=== PATIENT | female | born 1965 | race Caucasian/White ===

== ENCOUNTER 2017-03-28 19:01 | Emergency (ER) | payer SELFPAY ==
[~2017-03-28] VITALS: Ht 165.1 cm; Wt 59.0 kg
[2017-03-28 19:22] VITALS: BP 131/85
--- NOTE | 2017-03-28 20:36 | PHYS DOC ---
General Chief Complaint: SKIN PROBLEM Stated Complaint: CARLOS ALBERTO Time Seen by MD: 19:32 Source: patient, old records (from [place]) Exam Limitations: clinical condition Problems: History of Present Illness Initial Comments Pt is 51/F to ED c/o appendicitis. Pt states she was seen at [place] recently and diagnosed with acute appendicitis. States she was seen initially for skin rash but was dx appy and referred to surgeon. Pt denies admission or antibiotics. Pt is AOx3 but at times will say something random. I advised her we would request [facility] records and try to clear things up for her. She says she's had rash around umbilicus for years but noone can diagnose or treat it. Also complains of a few small bug bites (appear to be ingrown hairs or early MRSA) on arms/legs. No fever/chills/FLORES/n/v/d/cp/sob. Pt is very vague and poor historian, ED VSS Timing/Duration: unsure Severity: severe Modifying Factors: improves with other Associated Symptoms: rash Allergies: Coded Allergies: NSAIDS (Non-Steroidal Anti-Inflamma (Verified Allergy, Unknown, 03/28/17) celecoxib (Verified Allergy, Unknown, 03/28/17) cephalexin (Verified Allergy, Unknown, 03/28/17) levofloxacin (Verified Allergy, Unknown, 03/28/17) sulfamethoxazole (Verified Allergy, Unknown, 03/28/17) trimethoprim (Verified Allergy, Unknown, 03/28/17) Past Medical History Medical History: other (HTN, kidney stones, portal HTN, mood disorder, psychosis) Surgical History: no surgical history Social History Smoker: non-smoker Alcohol: none Drugs: none Review of Systems All Other Systems: Reviewed and Negative (poor historian, ROS unreliable) Physical Exam General Appearance: no apparent distress Ear, Nose, Throat: hearing grossly normal, normal ENT inspection, normal pharynx Neck: non-tender, supple Respiratory: normal breath sounds, no respiratory distress Cardiovascular: normal peripheral pulses, regular rate, rhythm Gastrointestinal: normal bowel sounds, soft (ND, erythema halo surrounding umbilicus slight induration/heat nontender no skin breaks/purulence/vesicles. two small (Less than 0.5cm) ingrown hairs vs early MRSA right arm and leg.) Back: no CVA tenderness, no vertebral tenderness Extremities: non-tender, normal inspection Neurologic/Psychiatric: religious educator II-XII nml as tested, alert, normal mood/affect, oriented x 3, other (erratic speech at times, no SI/HI, cooperative/appropriate) Skin: warm/dry (abdomen/extremities as above) Orders, Labs, Meds H records obtained, pt had cardiac CT calcium score eval only. No appendicitis or general surgery referrals. I advised pt of this to her relief, will treat skin infection. Departure Time of Disposition: 20:39 Disposition: 01 HOME, SELF-CARE Diagnosis: MRSA skin lesions/cellulitis Condition: GOOD Patient Instructions: Cellulitis, [id number], MRSA Infection, , Easy-to -Read Additional Instructions: To clarify, Anika has no record of appendicitis diagnosis for you. The redness around your umbilicus CAN be a skin manifestation associated with your prior portal hypertension diagnosis. Warm compresses 4 times daily. Rx: doxycycline, bactroban ointment. Take meds with food. OTC tylenol as needed. Follow up with your doctor in 5-7 days for recheck. Return to ED with new or changing symptoms. DES SOSA DO March 28, 2017 20:36
[2017-03-28] MEDS ORDERED: DOXY100C2 PO (20:42)
[2017-03-28] MEDS ORDERED: MUPI15CR TP (20:42)
[2017-03-28] MEDS ORDERED: DOXYCYCLINE HYCLATE 100 MG TABLET PO ONE (21:00)
== END 2017-03-28 20:57 | disposition home or self-care (01) ==
LOC: ER 19:07
DX: L03.316 Cellulitis of umbilicus (principal); A49.02 Methicillin resistant Staphylococcus aureus infection, unspecified site; L98.8 Other specified disorders of the skin and subcutaneous tissue; I10 Essential (primary) hypertension; F29 Unspecified psychosis not due to a substance or known physiological condition; Z87.442 Personal history of urinary calculi; Z88.1 Allergy status to other antibiotic agents; Z88.8 Allergy status to other drugs, medicaments and biological substances
CPT/HCPCS: 99283

== ENCOUNTER → 2017-06-01 | Outpatient (CLI) | payer MEDICARE, OTHER ==
[~2017-06-01] MED LIST: DOXY100C2 PO; MUPI15CR TP
--- NOTE | 2017-06-01 10:09 | RAD ---
CT of the abdomen and pelvis without contrast, 06/01/2017: History: Abdominal distention Noncontrast scans were obtained as requested. The gallbladder is surgically absent. The liver demonstrates decreased density in a slightly patchy pattern compatible with hepatic steatosis. No bile duct dilatation is seen. The pancreas and spleen are unremarkable. There is bilateral renal cortical scarring. A 2 cm cyst is noted laterally in the left kidney. The kidneys show no evidence of obstruction. No renal calculi are evident. The adrenal glands are unremarkable. The abdominal aorta is of normal caliber. No retroperitoneal adenopathy is seen. There are scattered mesenteric and iliac lymph nodes without evidence of pathologic enlargement. The uterus is surgically absent. There are several small scattered colonic diverticula. No paracolonic inflammatory process is seen. The appendix is visualized and shows no abnormality. The bowel loops are not dilated. No free fluid or free air is evident in the abdomen or pelvis. There are mild scattered degenerative changes in the spine. IMPRESSION: 1. Hepatic steatosis. 2. Left renal cyst. 3. Minimal colonic diverticulosis. 4. No acute abdominal or pelvic abnormality is detected. PQRS Compliance Statement: One or more of the following individualized dose reduction techniques were utilized for this examination: 1. Automated exposure control 2. Adjustment of the mA and/or kV according to patient size 3. Use of iterative reconstruction technique
== END | disposition home or self-care (01) ==
LOC: CT 08:13
PROVIDERS: ATTEND Internal Medicine
DX: Z12.31 Encounter for screening mammogram for malignant neoplasm of breast (principal); K57.30 Diverticulosis of large intestine without perforation or abscess without bleeding; N20.0 Calculus of kidney; K76.0 Fatty (change of) liver, not elsewhere classified; N28.1 Cyst of kidney, acquired
CPT/HCPCS: 74176; 77063; G0202; 77067

== ENCOUNTER → 2017-06-17 | Outpatient (CLI) | payer MEDICARE ==
--- NOTE | 2017-06-17 14:08 | RAD ---
EXAM: BREAST LEFT HISTORY: Small left breast mass on screening exam COMPARISON: Priors including 06/01/2017 at 10/12/2011 Focused ultrasound images are obtained through the left breast in the region of concern for possible small mass on screening exam. FINDINGS: Within the left breast at the 12:00 position 5 cm from the nipple there is a small hypoechoic mass measuring approximately 7 x 5 mm. There is no definite internal vascularity. There are some septations within versus a cluster of small hypoechoic lesions. IMPRESSION: Hypoechoic lesion is identified within the left breast at the 12:00 position. This could be secondary to a small complex cystic lesion or a cluster of small cysts adjacent to each other. Given the internal complexity would obtain a follow-up ultrasound and mammogram to ensure no increase. This could be obtained in 6 months. BI-RADS CATEGORY: 3 PROBABLE BENIGN-SHORT TERM F/U RECOMMENDED FOLLOW-UP: 6M 6 MONTH FOLLOW-UP PQRS compliance statement: Patient information was entered into a reminder system with a target due date for the next mammogram. Mammography is a sensitive method for finding small breast cancers, but it does not detect them all and is not a substitute for careful clinical examination. A negative mammogram does not negate a clinically suspicious finding and should not result in delay in biopsying a clinically suspicious abnormality. "Our facility is accredited by the [employer] Mammography Program."
== END | disposition home or self-care (01) ==
LOC: US 13:10
PROVIDERS: ATTEND Internal Medicine
DX: N63 Unspecified lump in breast (principal)
CPT/HCPCS: 76641

== ENCOUNTER 2019-12-15 09:04 | Emergency (ER) | payer MEDICARE ==
[~2019-12-15] VITALS: Ht 165.1 cm; Wt 90.7 kg
[2019-12-15 09:04] VITALS: BP 148/85
[2019-12-15] MEDS ORDERED: HYDROcodone/APAP 5/325MG 1 TAB TABLET PO ONE (09:15)
--- NOTE | 2019-12-15 09:45 | RAD ---
3 view sacrum coccyx dated 12/15/2019. No comparison available. Clinical data indication: Pain after injury. FINDINGS: 3 view sacrum coccyx show normal bony alignment. No displaced fracture. Sacral alae appear to be intact. No definite fracture of the coccygeal tip. There is mild osteitis pubis. IMPRESSION: No acute radiographic abnormality. Electronically signed by: Ebenezer Roche MD (12/15/2019 9:43 AM) [facility]
--- NOTE | 2019-12-15 09:50 | PHYS DOC ---
Past History Past Medical History: Hypertension, Kidney Stones, Other Additional Past Medical Histor: back pain Past Surgical History: No Surgical History Alcohol Use: Rarely Drug Use: None Adult General Chief Complaint Chief Complaint: MECHANICAL FALL HPI HPI Patient is a 53-year-old female presenting with tailbone pain she fell on the ice 90 right on her tailbone no head injury no loss of consciousness she was brought in by ambulance she is living at the nursing home she wants to know if I can give her an epidural Review of Systems Review of Systems Constitutional: Denies fever or chills [] Eyes: Denies change in visual acuity, redness, or eye pain [] HENT: Denies nasal congestion or sore throat [] Respiratory: Denies cough or shortness of breath [] Negative for bowel or bladder incontinence negative for numbness weakness or tingling All other systems were reviewed and found to be within normal limits, except as documented in this note. Current Medications Current Medications Current Medications Medications (Trade) Dose Ordered Sig/Danna Start Time Stop Time Status Last Admin Dose Admin Acetaminophen/ Hydrocodone Bitart (Lortab 5/325) 1 tab 1X ONCE 12/15/19 09:15 12/15/19 09:16 DC Allergies Allergies Allergies Coded Allergies Type Severity Reaction Last Updated Verified NSAIDS (Non-Steroidal Anti-Inflamma Allergy Unknown 03/28/17 Yes celecoxib Allergy Unknown 03/28/17 Yes cephalexin Allergy Unknown 03/28/17 Yes levofloxacin Allergy Unknown 03/28/17 Yes methamphetamine Allergy Unknown 12/15/19 Yes sulfamethoxazole Allergy Unknown 03/28/17 Yes trimethoprim Allergy Unknown 03/28/17 Yes Physical Exam Physical Exam Constitutional: Well developed, well nourished, no acute distress, non-toxic appearance. [] HENT: Normocephalic, atraumatic, bilateral external ears normal, oropharynx moist, no oral exudates, nose normal. [] Eyes: PERRLA, EOMI, conjunctiva normal, no discharge. [] Neck: Normal range of motion, no tenderness, supple, no stridor. [] Pulmonary: Normal respiratory effort no increased work of breathing no obvious chest wall trauma Back there is point tenderness at the sacrum no trauma seen Extremities: No tenderness, no cyanosis, no clubbing, ROM intact, no edema. [] Neurologic: Alert and oriented X 3, normal motor function, normal sensory function, no focal deficits noted. [] Psychologic: Affect normal, judgement normal, mood normal. [] Current Patient Data Vital Signs Vital Signs Date Time Temp Pulse Resp B/P (MAP) Pulse Ox O2 Delivery O2 Flow Rate FiO2 12/15/19 09:04 97.7 81 16 97 Room Air [facility]ature ([facility] * 97.7 degrees F (97.6-99.5) Patient Temperature * 97.7 degrees F (97.5-99.5) Temperature Source * Oral Blood Pressure Systolic * 148 mm Hg (100-140) H Blood Pressure Diastolic * 85 mm Hg (60-100) Blood Pressure Mean * 106 mm Hg Pulse Rate * 81 beats per minute (60-90) Respiratory Rate * 16 breaths per minute (12-24) Oxygen Delivery Method * Room Air Bedside Pulse Oximetry * 97 % Treatment Prior to Arrival * Yes - EMS Complaint of Pain * Yes Lab Results rature ([facility]): * 97.7 degrees F (97.6-99.5) Patient Temperature * 97.7 degrees F (97.5-99.5) Temperature Source * Oral Blood Pressure Systolic * 148 mm Hg (100-140) H Blood Pressure Diastolic * 85 mm Hg (60-100) Blood Pressure Mean * 106 mm Hg Pulse Rate * 81 beats per minute (60-90) Respiratory Rate * 16 breaths per minute (12-24) Oxygen Delivery Method * Room Air Bedside Pulse Oximetry * 97 % Treatment Prior to Arrival * Yes - EMS Complaint of Pain * Yes EKG EKG [] Radiology/Procedures Radiology/Procedures [] Impressions: 3 view sacrum coccyx show normal bony alignment. No displaced fracture. Sacral alae appear to be intact. No definite fracture of the coccygeal tip. There is mild osteitis pubis. IMPRESSION: No acute radiographic abnormality. Electronically signed by: Ebenezer Roche MD (12/15/2019 9:43 AM) [facility] DICTATED AND SIGNED BY: EBENEZER ROCHE MD DATE: 12/15/19 0943 CC: JAY JAY GODINEZ DO; ISAAC BRADY MD ~ Course & Med Decision Making Course & Med Decision Making Pertinent Labs and Imaging studies reviewed. (See chart for details) []Patient was given a dose of [place] and discharged in stable condition she is ambulatory Dragon Disclaimer Dragon Disclaimer This electronic medical record was generated, in whole or in part, using a voice recognition dictation system. Departure Departure: Impression: Primary Impression: Contusion Disposition: HOME, SELF-CARE Condition: STABLE Referrals: JAY JAY GODINEZ DO (PCP) ISAAC BRADY MD Dec 15, 2019 09:50
== END 2019-12-15 10:06 | disposition home or self-care (01) ==
LOC: ER 09:04
DX: S30.0XXA Contusion of lower back and pelvis, initial encounter (principal); I10 Essential (primary) hypertension; Z87.442 Personal history of urinary calculi; Z88.6 Allergy status to analgesic agent; Z88.1 Allergy status to other antibiotic agents; Z88.2 Allergy status to sulfonamides; W00.0XXA Fall on same level due to ice and snow, initial encounter; Y93.89 Activity, other specified; Y92.89 Other specified places as the place of occurrence of the external cause; Y99.8 Other external cause status
CPT/HCPCS: 72220; 99284

== ENCOUNTER → 2020-01-15 | Outpatient (CLI) | payer MEDICARE, OTHER ==
--- NOTE | 2020-01-16 15:16 | RAD ---
Examination: CT ABDOMEN PELVIS WO CONTRAST History: Abdominal pain, kidney stones Comparison/Correlation: 06/01/2017 CT abdomen and pelvis without contrast Findings: Axial images of the abdomen and pelvis were obtained without contrast. Sagittal and coronal reformatted images were provided. Visualized lung bases are clear. Right hepatic lobe posterior segment 3.2 cm x 2.4 cm low-attenuation lesion with Hounsfield units of 31 is present. It is well-circumscribed. Spleen, pancreas, and adrenal glands are normal. Cholecystectomy is noted. Left renal lower pole cyst is present with benign features and no further follow-up is recommended. No radiopaque collecting system calculi. Kidneys are overall unremarkable. Small umbilical hernia containing omental fat. Mesenteric lymph nodes are present but not enlarged. Appendix is normal. Diverticulosis of the colon is present. No acute inflammation. Urinary bladder is unremarkable. No acute bony process identified. Impression: Low-attenuation hepatic lesion is new compared to the previous CT exam. Further evaluation with MRI of the liver without and with contrast is recommended if able for more definitive assessment. Alternatively, CT of the liver with contrast may be performed. Diverticulosis. No radiopaque collecting system calculi or evidence of collecting system obstruction. On 01/16/2020 at 3:12 PM, findings were discussed with Dr. Faulkner. PQRS Compliance Statement: One or more of the following individualized dose reduction techniques were utilized for this examination: 1. Automated exposure control 2. Adjustment of the mA and/or kV according to patient size 3. Use of iterative reconstruction technique Electronically signed by: Dionicio Sidhu MD (01/16/2020 3:13 PM) [facility]
== END | disposition home or self-care (01) ==
LOC: CT 10:38
PROVIDERS: ATTEND Internal Medicine
DX: K42.9 Umbilical hernia without obstruction or gangrene (principal); K57.30 Diverticulosis of large intestine without perforation or abscess without bleeding; N28.1 Cyst of kidney, acquired; Z90.49 Acquired absence of other specified parts of digestive tract
CPT/HCPCS: 74176

== ENCOUNTER 2021-05-19 12:10 | Emergency (ER) | payer MEDICARE ==
[~2021-05-19] VITALS: Ht 167.6 cm; Wt 100.0 kg
--- NOTE | 2021-05-19 12:58 | PHYS DOC ---
Past History Past Medical History: Hypertension, Kidney Stones, Other Additional Past Medical Histor: back pain, chronic diarrhea, colon polyps (ALONDRA WEBB APRN) Past Surgical History: Cholecystectomy, Hysterectomy, Tonsillectomy (ALONDRA WEBB APRN) Additional Smoking Information: very rare cigarettes Alcohol Use: None Drug Use: None (ALONDRA WEBB APRN) General Adult EDM: Chief Complaint: MULTIPLE COMPLAINTS HPI: HPI: Patient is a 55-year-old female who presents with abdominal pain, nausea, dizziness for 3 days. Patient reports pain is in the middle of her abdomen. Denies taking anything for pain. Denies anything making the pain better or worse. Patient reports diarrhea, but has a history of chronic diarrhea. Denies dysuria. Denies chest pain, shortness of breath. Afebrile. Patient has a history of kidney stones. (ALONDRA WEBB APRN) Review of Systems: Review of Systems: Constitutional: Denies fever or chills Eyes: Denies change in visual acuity HENT: Denies nasal congestion or sore throat Respiratory: Denies cough or shortness of breath Cardiovascular: Denies chest pain or edema GI: Reports abdominal pain, nausea, and chronic diarrhea : Denies dysuria Musculoskeletal: Denies back pain or joint pain Integument: Denies rash Neurologic: Reports dizziness, denies focal weakness or sensory changes, denies headache Endocrine: Denies polyuria or polydipsia Lymphatic: Denies swollen glands Psychiatric: Denies depression or anxiety (ALONDRA WEBB APRN) Allergies: Allergies: Allergies Coded Allergies Type Severity Reaction Last Updated Verified NSAIDS (Non-Steroidal Anti-Inflamma Allergy Unknown 05/19/21 Yes celecoxib Allergy Unknown 05/19/21 Yes cephalexin Allergy Unknown 05/19/21 Yes levofloxacin Allergy Unknown 05/19/21 Yes methamphetamine Allergy Unknown 05/19/21 Yes sulfamethoxazole Allergy Unknown 05/19/21 Yes trimethoprim Allergy Unknown 05/19/21 Yes (ALONDRA WEBB APRN) Physical Exam: PE: Constitutional: Well developed, well nourished, no acute distress, non-toxic appearance. [] HENT: Normocephalic, atraumatic, bilateral external ears normal, oropharynx moist, no oral exudates, nose normal. [] Eyes: PERRLA, EOMI, conjunctiva normal, no discharge. [] Neck: Normal range of motion, no tenderness, supple, no stridor. [] Cardiovascular:Heart rate regular rhythm, no murmur [] Lungs & Thorax: Bilateral breath sounds clear to auscultation [] Abdomen: Bowel sounds normal, soft, no tenderness, no masses, no pulsatile masses. [] Skin: Warm, dry, no erythema, no rash. [] Back: No tenderness, no CVA tenderness. [] Extremities: No tenderness, no cyanosis, no clubbing, ROM intact, no edema. [] Neurologic: Alert and oriented X 3, normal motor function, normal sensory function, no focal deficits noted. [] Psychologic: Rambling, fleeting thoughts (ALONDRA WEBB APRN) Current Patient Data: Vital Signs: Vital Signs Date Time Temp Pulse Resp B/P (MAP) Pulse Ox O2 Delivery O2 Flow Rate FiO2 05/19/21 12:20 98.2 85 15 107/65 (79) 96 Room Air (ALONDRA WEBB APRN) EKG: EKG: Sinus rhythm. Heart rate 80 bpm. Intervals normal. [place] normal. Read by Dr. Mehta @1254 [] (ALONDRA WEBB SENIOR CREDIT OFFICER) Radiology/Procedures: Radiology/Procedures: []INDICATION: Reason: ABDOMINAL PAIN, HX KIDNEY STONES / Spl. Instructions: / History: . COMPARISON: December 2019 TECHNIQUE: Axial CT images obtained through the abdomen and pelvis without contrast. One or more of the following individualized dose reduction techniques were utilized for this examination: 1. Automated exposure control; 2. Adjustment of the mA and/or kV according to patient size; 3. Use of iterative reconstruction technique. FINDINGS: Abdominal aorta is not aneurysmal. Scattered plaque is seen. Small fat-containing umbilical hernia. There are some scattered prominent lymph nodes in the groin again seen. Is also prominent lymph nodes seen at the pelvis including left external iliac chain measuring up to about 10 mm short axis. Liver is prominent in size. Repeat demonstration of a indeterminate right lobe the liver low-density lesion measuring proximately 29 x 23 mm which is comparable to prior. Mild haziness of the mesentery with scattered lymph nodes in the region again seen. No pancreatic fluid collection. Prominent lymph nodes in the eladia hepatis region again seen. Spleen unremarkable. 31 mm low-density lesion of left kidney which is likely cystic in nature. Inc ompletely characterized on noncontrast exam. No hydronephrosis. Urinary bladder is decompressed. There is some indistinctness of the adjacent fat. No periappendiceal inflammatory changes. Colonic diverticulosis. No dilated loops of bowel to suggest obstruction. Degenerative changes of the spine. IMPRESSION: * No hydronephrosis or radiopaque obstructive ureter stone. * Cystic lesion of the left kidney again seen. * Low-density lesion of the right lobe the liver again seen and indeterminate in nature on this noncontrast examination. If more complete evaluation is desired nonemergent CT or MRI liver protocol could better assess. * Mild indistinctness the fat adjacent to the urinary bladder. Would correlate with symptoms and lab markers to ensure that this is not from a pathologic cause such as cystitis or bladder wall lesion. * Scattered mildly prominent lymph nodes are again seen as well as some nonspecific haziness of the mesentery. Electronically signed by: Miles Ayon MD (05/19/2021 2:02 PM) [id number] DICTATED AND SIGNED BY: MILES AYON MD DATE: 05/19/21 2200 CC: JAY JAY GODINEZ DO; ALONDRA WEBB APRN ~MTH0 0 (ALONDRA WEBB APRN) Heart Score: C/O Chest Pain: No Risk Factors: Risk Factors: DM, Current or recent (<one month) smoker, HTN, HLP, family history of CAD, obesity. Risk Scores: Score 0 - 3: 2.5% MACE over next 6 weeks - Discharge Home Score 4 - 6: 20.3% MACE over next 6 weeks - Admit for Clinical Observation Score 7 - 10: 72.7% MACE over next 6 weeks - Early Invasive Strategies (ALONDRA WEBB APRN) Course & Med Decision Making: Course & Med Decision Making Pertinent Labs and Imaging studies reviewed. (See chart for details) [] 55-year-old female who presents with abdominal pain, nausea and dizziness for the last 3 days. Patient has a history of kidney stones. Denying dysuria or flank pain. CT of abdomen ordered to rule out any acute abnormalities. Patient's had gallbladder removed along with a total hysterectomy. EKG shows sinus rhythm, neuro exam is negative. Patient given morphine, Zofran, fluids for abdominal pain, nausea and dizziness. CT of abdomen and pelvis is negative for any new acute abnormalities. All labs unremarkable. Patient reports that pain has improved. Discussed CT results with patient. Advised patient to follow-up with PCP if symptoms continue. Patient is appreciative and okay with discharge plan. Patient is hemodynamically stable and able to ambulate on her own out of the emergency room. (ALONDRA WEBB APRN) Dm Disclaimer: Dm Disclaimer: This electronic medical record was generated, in whole or in part, using a voice recognition dictation system. (ALONDRA WEBB APRN) Departure Departure: Impression: Primary Impression: Abdominal pain Qualified Codes: R10.33 - Periumbilical pain Additional Impressions: Nausea Dizziness Disposition: HOME / SELF CARE / HOMELESS Condition: STABLE Referrals: JAY JAY GODINEZ DO (PCP) Patient Instructions: Abdominal Pain Additional Instructions: You were seen in the emergency room for abdominal pain, nausea, dizziness. You were given pain medication, nausea medication, fluids. The CT of your abdomen was negative for any abnormalities. You can take ibuprofen and Tylenol at home for discomfort. Follow-up with your PCP for further management if pain continues. You may return to the emergency room if you have worsening symptoms or concerns. EMERGENCY DEPARTMENT GENERAL DISCHARGE INSTRUCTIONS Thank you for coming to [facility] (ED) today and trusting us with you care. We trust that you had a positivie experience in our Emergency Department. If you wish to speak to the department management, you may call the director at [phone]. YOUR FOLLOW UP INSTRUCTIONS ARE FOLLOWS: 1. Do you have a private Doctor? If you do not have a private doctor, please ask for a resource list of physicians or clinics that may be able to assist you with follow up care. 2. The Emergency Physician has interpreted your x-rays. The X-Ray specialist will also review them. If there is a change in the findings, you will be notified in 48 hours when at all possible. 3. A lab test or culture has been done, your results will be reviewed and you will be notified if you need a change in treatment. ADDITIONAL INSTRUCTIONS AND INFORMATION: 1. Your care today has been supervised by a physician who is specially trained in emergency care. Many problems require more than one evaluation for a complete diagnosis and treatment. We recommend that you schedule your follow up appointment as recommended to ensure complete treatment of you illness or injury. If you are unable to obtain follow up care and continue to have a problem, or if your condition worsens, we recommend that you return to the ED. 2. We are not able to safely determine your condition over the phone nor are we able to give sound medical advice over the phone. For these safety reasons, if you call for medical advice we will ask you to come to the ED for further evaluation. 3. If you have any questions regarding these discharge instructions please call the ED at [phone]. SAFETY INFORMATION: In the interest of safety, wellness, and injury prevention; we encourage you to wear your sealbelt, if you smoke; quite smoking, and we encourage family to use a protective helmet for bicycling and other sporting events that present an increased risk for head injury. IF YOUR SYMPTOMS WORSEN OR NEW SYMPTOMS DEVELOP, OR YOU HAVE CONCERNS ABOUT YOUR CONDITION; OR IF YOUR CONDITION WORSENS WHILE YOU ARE WAITING FOR YOUR FOLLOW UP APPOINTMENT; EITHER CONTACT YOUR PRIMARY CARE DOCTOR, THE PHYSICIAN WHOSE NAME AND NUMBER YOU WERE GIVEN, OR RETURN TO THE ED IMMEDIATELY. Attending Signature Attending Signature I have reviewed the PA/[employer]'s note and plan of care. I was available for consultation as needed during the patient's visit in the emergency department. I agree with the clinical impression, plan, and disposition. (EDWARD MEHTA DO) ALONDRA WEBB APRN May 19, 2021 12:58 EDWARD MEHTA DO May 19, 2021 23:21
[2021-05-19] MEDS ORDERED: MORPHINE SULFATE 4 MG/ML DISP.SYRIN. IV ONE (13:15)
[2021-05-19] MEDS ORDERED: ONDANSETRON PF 4 MG/2 ML VIAL. IVP ONE (13:15)
[2021-05-19 13:23] LABS: BASO % 1 % (0-3); EOS # 0.3 x10^3/uL (0.0-0.7); EOS % 4 % (0-3); HEMATOCRIT 38.3 % (36.0-47.0); HEMOGLOBIN 13.1 g/dL (12.0-15.5); LYMPH % 38 % (24-48); MEAN CORPUSCULAR HEMOGLOBIN 30 pg (25-35); MEAN CORPUSCULAR HGB CONC 34 g/dL (31-37); MEAN CORPUSCULAR VOLUME 87 fL (79-100); MONO # 0.5 x10^3/uL (0.0-1.1); MONO % 6 % (0-9); NEUT # 4.1 x10^3uL (1.8-7.7); NEUT % 52 % (31-73); PLATELET COUNT 196 x10^3/uL (140-400); RED BLOOD COUNT 4.42 x10^6/uL (3.50-5.40); RED CELL DISTRIBUTION WIDTH 14.5 % (11.5-14.5); WHITE BLOOD COUNT 7.8 x10^3/uL (4.0-11.0)
[2021-05-19 13:28] LABS: HEMOGLOBIN ISTAT 12.6 gm/dL; POTASSIUM ISTAT 3.6 mmol/L (3.5-5.0)
[2021-05-19 13:30] LABS: BILIRUBIN,URINE NEG (NEG); CLARITY,URINE CLEAR; COLOR,URINE YELLOW; GLUCOSE,URINE NEG (NEG); NITRITE,URINE NEG (NEG); UROBILINOGEN,URINE 0.2 mg/dL (0.2 mg/dL)
[2021-05-19] MEDS ORDERED: IV NORMAL SALINE 1,000ML 1,000 ML IV ONE (13:30)
[2021-05-19 13:34] LABS: BACTERIA,URINE MOD /HPF (0-FEW); SQUAMOUS EPITHELIAL CELL,UR FEW /LPF
--- NOTE | 2021-05-19 14:05 | RAD ---
INDICATION: Reason: ABDOMINAL PAIN, HX KIDNEY STONES / Spl. Instructions: / History: . COMPARISON: December 2019 TECHNIQUE: Axial CT images obtained through the abdomen and pelvis without contrast. One or more of the following individualized dose reduction techniques were utilized for this examinat ion: 1. Automated exposure control; 2. Adjustment of the mA and/or kV according to patient size; 3 . Use of iterative reconstruction technique. FINDINGS: Abdominal aorta is not aneurysmal. Scattered plaque is seen. Small fat-containing umbilical hernia. There are some scattered prominent lymph nodes in the groin again seen. Is also prominent lymph nodes seen at the pelvis including left external iliac chain measuring up to about 10 mm short axis. Liver is prominent in size. Repeat demonstration of a indeterminate right lobe the liver low-density lesion measuring proximately 29 x 23 mm which is comparable to prior. Mild haziness of the mesentery with scattered lymph nodes in the region again seen. No pancreatic flu id collection. Prominent lymph nodes in the eladia hepatis region again seen. Spleen unremarkable. 31 mm low-density lesion of left kidney which is likely cystic in nature. Incompletely characterized on noncontrast exam. No hydronephrosis. Urinary bladder is decompressed. There is some indistinctness of the adjacent fat. No periappendiceal inflammatory changes. Colonic diverticulosis. No dilated loops of bowel to suggest obstruction. Degenerative changes of the spine. IMPRESSION: * No hydronephrosis or radiopaque obstructive ureter stone. * Cystic lesion of the left kidney again seen. * Low-density lesion of the right lobe the liver again seen and indeterminate in nature on this nonc ontrast examination. If more complete evaluation is desired nonemergent CT or MRI liver protocol coul d better assess. * Mild indistinctness the fat adjacent to the urinary bladder. Would correlate with symptoms and lab markers to ensure that this is not from a pathologic cause such as cystitis or bladder wall lesion. * Scattered mildly prominent lymph nodes are again seen as well as some nonspecific haziness of the mesentery. Electronically signed by: Lm Gilbert MD (05/19/2021 2:02 PM) [id number]
[2021-05-19 16:15] VITALS: BP 99/58
[2021-05-19 16:41] LABS: AMPHETAMINE/METHAMPHETAMINE NEG (NEG); BARBITURATES NEG (NEG); BENZODIAZEPINES NEG (NEG); CANNABINOIDS NEG (NEG); COCAINE NEG (NEG); METHADONE NEG (NEG); OPIATES NEG (NEG); PHENCYCLIDINE NEG (NEG)
[2021-05-19 16:45] LABS: ALBUMIN 3.7 g/dL (3.4-5.0); CALCIUM 8.9 mg/dL (8.5-10.1); CREATININE 0.8 mg/dL (0.6-1.0); POTASSIUM 3.6 mmol/L (3.5-5.1); TOTAL BILIRUBIN 1.3 mg/dL (0.2-1.0); TOTAL PROTEIN 7.3 g/dL (6.4-8.2)
[2021-05-19 16:46] LABS: GFR 74.5
--- NOTE | 2021-05-21 06:31 | EKG ---
[address] [address] Test Date: 2021-05-19 Test Time: 12:48:53 Pat Name: DICKSON MARIE Department: Room: Gender: F Consultant Electronics: HUGO : 1965 Requested By: ALONDRA WEBB Order Number: [id number] Reading MD: Measurements Intervals [place] Rate: 80 P: 40 OR: 158 QRS: 36 QRSD: 90 T: 22 QT: 384 QTc: 447 Interpretive Statements SINUS RHYTHM NORMAL ECG RI6.02 No previous ECG available for comparison
== END 2021-05-19 16:20 | disposition home or self-care (01) ==
LOC: ER 12:10
DX: R10.33 Periumbilical pain (principal); R42 Dizziness and giddiness; R11.0 Nausea; R19.7 Diarrhea, unspecified; I10 Essential (primary) hypertension; F17.200 Nicotine dependence, unspecified, uncomplicated; Z87.442 Personal history of urinary calculi; Z90.49 Acquired absence of other specified parts of digestive tract; Z90.710 Acquired absence of both cervix and uterus; Z88.6 Allergy status to analgesic agent; Z88.1 Allergy status to other antibiotic agents; Z88.8 Allergy status to other drugs, medicaments and biological substances
CPT/HCPCS: 36415; 74176; 80047; 80053; 80307; 81001; 83690; 85025; 87086; 93005; 96361; 96374; 96375; 99285; J2270; J2405; J7030

== ENCOUNTER 2021-07-11 11:57 | Emergency (ER) | payer MEDICARE ==
[~2021-07-11] VITALS: Ht 162.6 cm; Wt 89.9 kg
[~2021-07-11 11:57] MED LIST changes: -DOXY100C2 PO; +DOXY100C3 PO
[2021-07-11] MEDS ORDERED: IV NORMAL SALINE 1,000ML 1,000 ML IV ONE (12:30)
[2021-07-11] MEDS ORDERED: ONDANSETRON PF 4 MG/2 ML VIAL. IVP ONE (12:30)
[2021-07-11] MEDS ORDERED: IOHEXOL 300 MG/ML 75 ML VIAL. IV ONE (12:30)
--- NOTE | 2021-07-11 12:35 | PHYS DOC ---
Past History Past Medical History: Hypertension, Kidney Stones, Other Additional Past Medical Histor: back pain, chronic diarrhea, colon polyps Past Surgical History: Cholecystectomy, Hysterectomy, Oophorectomy, Tonsillectomy, Other Additional Past Surgical Histo: bilat carpal tunneling; kidney stones; bladder tack Alcohol Use: Occasionally Drug Use: None General Adult EDM: Chief Complaint: ABDOMINAL PAIN HPI: HPI: 55-year-old female presents with right flank pain. She has had this pain for 2 days. She has a history of kidney stones and wonders if this is another one. The pain is a cramping sensation. She denies dysuria but may have increased urinary frequency. Denies fever or chills at home. She has no other complaints this time. Review of Systems: Review of Systems: Constitutional: Denies fever or chills Eyes: Denies change in visual acuity HENT: Denies nasal congestion or sore throat Respiratory: Denies cough or shortness of breath Cardiovascular: Denies chest pain or edema GI: Right flank pain. Denies nausea, vomiting, bloody stools or diarrhea : Denies dysuria Musculoskeletal: Denies back pain or joint pain Integument: Denies rash Neurologic: Denies headache, focal weakness or sensory changes Endocrine: Denies polyuria or polydipsia Lymphatic: Denies swollen glands Psychiatric: Denies depression or anxiety Current Medications: Current Meds: Current Medications Medications (Trade) Dose Ordered Sig/Danna Start Time Stop Time Status Last Admin Dose Admin Iohexol (Omnipaque 300 Mg/ml) 75 ml 1X ONCE 07/11/21 12:30 07/11/21 12:31 UNV Ondansetron HCl (Zofran) 4 mg 1X ONCE 07/11/21 12:30 07/11/21 12:31 UNV Sodium Chloride 1,000 ml @ 1,000 mls/hr 1X ONCE 07/11/21 12:30 07/11/21 13:29 UNV Allergies: Allergies: Allergies Coded Allergies Type Severity Reaction Last Updated Verified NSAIDS (Non-Steroidal Anti-Inflamma Allergy Unknown 05/19/21 Yes celecoxib Allergy Unknown 05/19/21 Yes cephalexin Allergy Unknown 05/19/21 Yes levofloxacin Allergy Unknown 05/19/21 Yes methamphetamine Allergy Unknown 05/19/21 Yes sulfamethoxazole Allergy Unknown 05/19/21 Yes trimethoprim Allergy Unknown 05/19/21 Yes Physical Exam: PE: Constitutional: Well developed, well nourished, obese, no acute distress, non- toxic appearance. [] HENT: Normocephalic, atraumatic, bilateral external ears normal, oropharynx moist, no oral exudates, nose normal. [] Eyes: PERRLA, EOMI, conjunctiva normal, no discharge. [] Neck: Normal range of motion, no tenderness, supple, no stridor. [] Cardiovascular: Heart rate regular rhythm, no murmur [] Lungs & Thorax: Bilateral breath sounds clear to auscultation [] Abdomen: Bowel sounds normal, soft, no tenderness, no masses, no pulsatile masses. [] Skin: Warm, dry, no erythema, no rash. [] Back: No tenderness, right sided CVA tenderness. [] Extremities: No tenderness, no cyanosis, no clubbing, ROM intact, no edema. [] Neurologic: Alert and oriented X 3, normal motor function, normal sensory function, no focal deficits noted. [] Psychologic: Affect normal, judgement normal, mood normal. [] Current Patient Data: Vital Signs: Vital Signs Date Time Temp Pulse Resp B/P (MAP) Pulse Ox O2 Delivery O2 Flow Rate FiO2 07/11/21 12:09 98.0 95 18 116/64 97 Room Air EKG: EKG: [] Radiology/Procedures: Radiology/Procedures: [] Impressions: INDICATION: Reason: right flank pain / Spl. Instructions: / History: . COMPARISON: April 2021 TECHNIQUE: Axial CT images obtained through the abdomen and pelvis without contrast. One or more of the following individualized dose reduction techniques were utilized for this examination: 1. Automated exposure control; 2. Adjustment of the mA and/or kV according to patient size; 3. Use of iterative reconstruction technique. FINDINGS: 3 mm subpleural nodule at the left lung base. Mild patchy groundglass opacity right lung base again seen and could be from atelectasis or small airway inflammation. Scattered calcific atherosclerosis. Small fat-containing umbilical hernia. Small pericardial fluid. Liver is prominent in size. Repeat demonstration of low-density mass within the right lobe the liver measuring approximately 32 x 22 mm. No peripancreatic fluid collection. There is some edema within the mesentery with prominent lymph nodes in the area again seen. Spleen unremarkable. Low-density lesion of the left kidney measuring up to about 32 mm which is likely cystic in nature. Urinary bladder is decompressed with some indistinctness of the adjacent fat. No hydronephrosis. Colonic diverticulosis. No periappendiceal inflammatory changes. Degenerative changes the spine IMPRESSION: * No hydronephrosis or periappendiceal inflammatory changes. * No evidence of bowel obstruction. * Repeat demonstration of indeterminate lesion at the right lobe the liver. Not well characterized on this noncontrast examination and if further evaluation is desired nonemergent ultrasound, CT or MRI liver protocol could further assess. * Urinary bladder is decompressed but there is prominence the wall with indistinctness of the adjacent fat. Would correlate with symptoms given that causes such as cystitis could have this appearance or a bladder wall lesion. Electronically signed by: Miles Gilbert MD (07/11/2021 1:01 PM) [id number] DICTATED AND SIGNED BY: MILES GILBERT MD DATE: 07/11/21 1249 CC: ARTURO ROSS DO; JAVIER MAX MD ~MTH0 0 Heart Score: C/O Chest Pain: N/A Risk Factors: Risk Factors: DM, Current or recent (<one month) smoker, HTN, HLP, family history of CAD, obesity. Risk Scores: Score 0 - 3: 2.5% MACE over next 6 weeks - Discharge Home Score 4 - 6: 20.3% MACE over next 6 weeks - Admit for Clinical Observation Score 7 - 10: 72.7% MACE over next 6 weeks - Early Invasive Strategies Course & Med Decision Making: Course & Med Decision Making Pertinent Labs and Imaging studies reviewed. (See chart for details) The patient's labs are unremarkable. Her urinalysis is negative for infection though she has bacteria. Her CT scan is negative for acute findings there are some chronic findings. See official read for details. When I viewed her CT scan she does have a moderate amount of stool retention in the ascending colon. This could be some of her pain. I have advised a bowel cleanout. She is stable for discharge at this time. [] Dm Disclaimer: Dm Disclaimer: This electronic medical record was generated, in whole or in part, using a voice recognition dictation system. Departure Departure: Impression: Primary Impression: Constipation Qualified Codes: K59.01 - Slow transit constipation Disposition: HOME / SELF CARE / HOMELESS Condition: STABLE Referrals: JAVIER MAX MD (PCP) Patient Instructions: Constipation, Adult, [id number] ARTURO ROSS DO Jul 11, 2021 12:35
[2021-07-11 12:58] LABS: BASO # 0.1 x10^3/uL (0.0-0.2); BASO % 1 % (0-3); EOS # 0.5 x10^3/uL (0.0-0.7); EOS % 5 % (0-3); HEMATOCRIT 41.4 % (36.0-47.0); HEMOGLOBIN 13.8 g/dL (12.0-15.5); LYMPH # 3.8 x10^3/uL (1.0-4.8); LYMPH % 36 % (24-48); MEAN CORPUSCULAR HEMOGLOBIN 29 pg (25-35); MEAN CORPUSCULAR HGB CONC 33 g/dL (31-37); MEAN CORPUSCULAR VOLUME 88 fL (79-100); MONO # 0.5 x10^3/uL (0.0-1.1); MONO % 4 % (0-9); NEUT # 5.9 x10^3uL (1.8-7.7); NEUT % 55 % (31-73); PLATELET COUNT 212 x10^3/uL (140-400); RED BLOOD COUNT 4.73 x10^6/uL (3.50-5.40); WHITE BLOOD COUNT 10.8 x10^3/uL (4.0-11.0)
[2021-07-11 13:00] LABS: BILIRUBIN,URINE NEG (NEG); CLARITY,URINE HAZY; COLOR,URINE YELLOW; GLUCOSE,URINE NEG (NEG); NITRITE,URINE NEG (NEG); UROBILINOGEN,URINE 0.2 mg/dL (0.2 mg/dL)
[2021-07-11] MEDS ORDERED: CONTRAST GIVEN. MC PRN (13:00)
[2021-07-11 13:04] LABS: CALCIUM 9.4 mg/dL (8.5-10.1); CREATININE 0.7 mg/dL (0.6-1.0); GFR 86.9; POTASSIUM 3.3 mmol/L (3.5-5.1)
--- NOTE | 2021-07-11 13:04 | RAD ---
INDICATION: Reason: right flank pain / Spl. Instructions: / History: . COMPARISON: April 2021 TECHNIQUE: Axial CT images obtained through the abdomen and pelvis without contrast. One or more of the following individualized dose reduction techniques were utilized for this examinat ion: 1. Automated exposure control; 2. Adjustment of the mA and/or kV according to patient size; 3 . Use of iterative reconstruction technique. FINDINGS: 3 mm subpleural nodule at the left lung base. Mild patchy groundglass opacity right lung base again seen and could be from atelectasis or small air way inflammation. Scattered calcific atherosclerosis. Small fat-containing umbilical hernia. Small pericardial fluid. Liver is prominent in size. Repeat demonstration of low-density mass within the right lobe the liver measuring approximately 32 x 22 mm. No peripancreatic fluid collection. There is some edema within the mesentery with prominent lymph nodes in the area again seen. Spleen unremarkable. Low-density lesion of the left kidney measuring up to about 32 mm which is likely cystic in nature. Urinary bladder is decompressed with some indistinctness of the adjacent fat. No hydronephrosis. Colonic diverticulosis. No periappendiceal inflammatory changes. Degenerative changes the spine IMPRESSION: * No hydronephrosis or periappendiceal inflammatory changes. * No evidence of bowel obstruction. * Repeat demonstration of indeterminate lesion at the right lobe the liver. Not well characterized o n this noncontrast examination and if further evaluation is desired nonemergent ultrasound, CT or MRI liver protocol could further assess. * Urinary bladder is decompressed but there is prominence the wall with indistinctness of the adjace nt fat. Would correlate with symptoms given that causes such as cystitis could have this appearance o r a bladder wall lesion. Electronically signed by: Lm Gilbert MD (07/11/2021 1:01 PM) [id number]
[2021-07-11 13:08] LABS: BACTERIA,URINE MOD /HPF (0-FEW); SQUAMOUS EPITHELIAL CELL,UR MANY /LPF
[2021-07-11 13:11] LABS: ALBUMIN 3.8 g/dL (3.4-5.0); TOTAL BILIRUBIN 0.9 mg/dL (0.2-1.0); TOTAL PROTEIN 7.8 g/dL (6.4-8.2)
[2021-07-11 14:40] VITALS: BP 125/79
== END 2021-07-11 14:40 | disposition home or self-care (01) ==
LOC: ER 11:57
DX: K59.01 Slow transit constipation (principal); I10 Essential (primary) hypertension; Z87.442 Personal history of urinary calculi; Z90.49 Acquired absence of other specified parts of digestive tract; Z90.710 Acquired absence of both cervix and uterus; Z90.722 Acquired absence of ovaries, bilateral; Z88.1 Allergy status to other antibiotic agents; Z88.8 Allergy status to other drugs, medicaments and biological substances; Z88.6 Allergy status to analgesic agent
CPT/HCPCS: 36415; 74176; 80053; 81001; 83690; 85025; 87086; 96361; 96374; 99284; J2405; J7030

== ENCOUNTER → 2021-08-05 | Outpatient (CLI) | payer MEDICARE ==
[2021-07-11 14:40] VITALS: BP 125/79
[~2021-08-05] MED LIST changes: +OMEP40CA7 PO; +SUCR1TAB35 PO
--- NOTE | 2021-08-05 09:50 | RAD ---
XR FOOT_RIGHT 2 VIEWS History: Chronic right foot pain. Comparison: None. Technique: 2 views of the right foot. Findings: Osseous mineralization is normal. No fracture or dislocation. Moderate degenerative changes of the fi rst metatarsophalangeal joint with lateral joint space loss and marginal osteophyte formation. No foc al soft tissue swelling. Impression: 1. Degenerative changes at the first metatarsophalangeal joint. No acute osseous abnormality in the right foot. Electronically signed by: Brent Romano MD (08/05/2021 9:47 AM) [facility]
== END ==
LOC: RAD 07:55
PROVIDERS: ATTEND Nurse Practitioner Family
DX: M19.071 Primary osteoarthritis, right ankle and foot (principal)
CPT/HCPCS: 73620

== ENCOUNTER 2021-08-07 07:17 | Emergency (ER) | payer MEDICARE ==
[~2021-08-07] VITALS: Ht 162.6 cm; Wt 89.9 kg
[~2021-08-07 07:17] MED LIST changes: -OMEP40CA7 PO; -SUCR1TAB35 PO
--- NOTE | 2021-08-07 07:57 | PHYS DOC ---
Past History Past Medical History: Hypertension, Kidney Stones, Other Additional Past Medical Histor: back pain, chronic diarrhea, colon polyps Past Surgical History: Cholecystectomy, Hysterectomy, Oophorectomy, Tonsillectomy, Other Additional Past Surgical Histo: bilat carpal tunneling; kidney stones; Additional Smoking Information: quit recently Alcohol Use: None Drug Use: None General Adult EDM: Chief Complaint: ABDOMINAL PAIN HPI: HPI: Patient is a 55-year-old female coming in for acute on chronic abdominal pain. Patient states she has had chronic right-sided abdominal pain since her cholecystectomy but says this pain just hours midline is started about an hour and half prior to arrival. Patient last p.o. intake was 3 hours prior to arrival. Patient says she has had one episode of diarrhea this morning, has been having diarrhea for the past couple weeks. Denies any nausea vomiting. S ays the pain is sharp. Does not radiate. States she has a history of kidney stones and passed a kidney stone last week, denies any hematuria currently. Review of Systems: Review of Systems: All other systems within normal limits except for as noted in the HPI Allergies: Allergies: Allergies Coded Allergies Type Severity Reaction Last Updated Verified NSAIDS (Non-Steroidal Anti-Inflamma Allergy Unknown 08/07/21 Yes celecoxib Allergy Unknown 08/07/21 Yes cephalexin Allergy Unknown 08/07/21 Yes levofloxacin Allergy Unknown 08/07/21 Yes methamphetamine Allergy Unknown 08/07/21 Yes sulfamethoxazole Allergy Unknown 08/07/21 Yes trimethoprim Allergy Unknown 05/19/21 Yes Physical Exam: PE: Constitutional: Well developed, well nourished, no acute distress, non-toxic appearance. [] HENT: Normocephalic, atraumatic, bilateral external ears normal, nose normal. [] Eyes: PERRLA, conjunctiva normal, no discharge. [] Neck: No rigidity, supple, no stridor. [] Cardiovascular: Regular rate and rhythm, brisk cap refill [] Lungs & Thorax: Non labored symmetric respirations, no tachypnea or respiratory distress [] Abdomen: Soft, nondistended, tenderness palpation without guarding or rebound, negative Goss's, no bruits point tenderness, no pulsatile masses Skin: Warm, dry, no erythema, no rash. [] Back: Unremarkable Extremities: No deformities, range of motion grossly intact, no lower extremity edema [] Neurologic: Alert and oriented X 3, no focal deficits noted. [] Psychologic: Affect normal, judgement normal, mood normal. [] Current Patient Data: Vital Signs: Vital Signs Date Time Temp Pulse Resp B/P (MAP) Pulse Ox O2 Delivery O2 Flow Rate FiO2 08/07/21 07:26 97.9 75 16 130/86 (101) 99 EKG: EKG: Sinus rhythm, heart rate 60s neck, no axis, no isolation fashion, no ectopy. [] Radiology/Procedures: Radiology/Procedures: [address] [address] IMAGING REPORT Signed PATIENT: DICKSON MARIE ACCOUNT: [id number] : 1965 LOCATION: ER AGE: 55 SEX: F EXAM STATUS: REG ER ORD. PHYSICIAN: JAIRO BRIGHT MD REASON: abd pain, epigastric OMNI 300 75ML IV PROCEDURE: CT ABD PELV W/ IV CONTRST ONLY INDICATION: Reason: abd pain, epigastric OMNI 300 75ML IV / Spl. Instructions: / History: COMPARISON: July 11, 2021 TECHNIQUE: Axial CT images were obtained through the abdomen and pelvis with intravenous contrast. One or more of the following individualized dose reduction techniques were utilized for this examination: 1. Automated exposure control; 2. Adjustment of the mA and/or kV according to patient size; 3. Use of iterative reconstruction technique. FINDINGS: Vascular: Scattered calcific atherosclerosis. Small fat-containing inguinal hernia. Small fat-containing umbilical hernia. Hepatobiliary: Within the right lobe the liver there is ill-defined low-density masslike structure again seen within the right lobe measuring approximately 30 x 23 mm. Mild prominence the bile ducts again seen. Pancreas: No peripancreatic edema. Spleen: Spleen unremarkable. Renal: Left renal cystic lesion measuring 32 mm. No hydronephrosis. Bladder: Urinary bladder has minimal urine within it at time of exam with repeat demonstration of some mild prominence of the wall. Gastrointestinal: Colonic diverticulosis. No periappendiceal inflammatory changes. No dilated loops of bowel to suggest obstruction. Old right rib fractures. Degenerative changes the spine. There is some sclerosis at the pubic symphysis which could be from degenerative changes or chronic symphysitis. IMPRESSION: * No evidence of bowel obstruction or appendicitis. * Repeat demonstration of low-density lesion within the right lobe the liver with irregular shape. If the patient has not had a liver MRI then would consider obtaining 1 given that this has an indeterminate appearance and neoplastic causes are within the differential. * Repeat demonstration of dilated bile ducts with common bile duct measuring up to about 10 mm. Electronically signed by: Miles Ayon MD (08/07/2021 8:40 AM) [id number] DICTATED AND SIGNED BY: MILES AYON MD DATE: 08/07/21825 CC: JAIRO BRIGHT MD; JAVIER MAX MD ~MTH0 0 [] Heart Score: C/O Chest Pain: No HEART Score for Chest Pain: HEART Score for Chest Pain Response (Comments) Value History Slighlty/Non-Suspicious 0 ECG Normal 0 Age >45 - < 65 1 Risk Factors 1 or 2 Risk Factors 1 Troponin < Normal Limit 0 Total 2 Risk Factors: Risk Factors: DM, Current or recent (<one month) smoker, HTN, HLP, family history of CAD, obesity. Risk Scores: Score 0 - 3: 2.5% MACE over next 6 weeks - Discharge Home Score 4 - 6: 20.3% MACE over next 6 weeks - Admit for Clinical Observation Score 7 - 10: 72.7% MACE over next 6 weeks - Early Invasive Strategies Course & Med Decision Making: Course & Med Decision Making Pertinent Labs and Imaging studies reviewed. (See chart for details) [] Pain relieved with GI cocktail Dragon Disclaimer: Dragon Disclaimer: This electronic medical record was generated, in whole or in part, using a voice recognition dictation system. Departure Departure: Impression: Primary Impression: Gastritis Disposition: 01 HOME / SELF CARE / HOMELESS Condition: STABLE Referrals: JAVIER MAX MD (PCP) Patient Instructions: Diet for Gastroesophageal Reflux Disease, Adult Additional Instructions: [facility] [address] [place] [address] Scripts Sucralfate (CARAFATE) 1 Gm Tablet 1 TAB PO QIDPRN for stomach pain for 30 Days, #60 TAB 0 Refills Prov: JAIRO BRIGHT MD 08/07/21 Omeprazole (OMEPRAZOLE) 40 Mg Capsule.dr 1 CAP PO DAILY for antacid for 30 Days, #30 CAP 3 Refills Prov: JAIRO BRIGHT MD 08/07/21 JAIRO BRIGHT MD Aug 07, 2021 07:57
[2021-08-07] MEDS ORDERED: CONTRAST GIVEN. MC PRN (08:00)
[2021-08-07] MEDS ORDERED: IOHEXOL 300 MG/ML 75 ML VIAL. IV ONE (08:00)
[2021-08-07 08:06] LABS: AMORPHOUS SEDIMENT,UR PRESENT /HPF; BACTERIA,URINE MOD /HPF (0-FEW); BILIRUBIN,URINE NEG (NEG); CLARITY,URINE HAZY; COLOR,URINE YELLOW; GLUCOSE,URINE NEG (NEG); NITRITE,URINE NEG (NEG); RBC,URINE 0 /HPF (0-2); SQUAMOUS EPITHELIAL CELL,UR MANY /LPF
[2021-08-07 08:37] LABS: BASO % 1 % (0-3); EOS # 0.5 x10^3/uL (0.0-0.7); EOS % 7 % (0-3); HEMATOCRIT 42.5 % (36.0-47.0); HEMOGLOBIN 14.2 g/dL (12.0-15.5); LYMPH # 3.1 x10^3/uL (1.0-4.8); LYMPH % 40 % (24-48); MEAN CORPUSCULAR HEMOGLOBIN 29 pg (25-35); MEAN CORPUSCULAR HGB CONC 33 g/dL (31-37); MEAN CORPUSCULAR VOLUME 88 fL (79-100); MONO # 0.5 x10^3/uL (0.0-1.1); MONO % 6 % (0-9); NEUT # 3.6 x10^3uL (1.8-7.7); NEUT % 46 % (31-73); PLATELET COUNT 177 x10^3/uL (140-400); RED BLOOD COUNT 4.85 x10^6/uL (3.50-5.40); RED CELL DISTRIBUTION WIDTH 15.3 % (11.5-14.5); WHITE BLOOD COUNT 7.7 x10^3/uL (4.0-11.0)
--- NOTE | 2021-08-07 08:42 | RAD ---
INDICATION: Reason: abd pain, epigastric OMNI 300 75ML IV / Spl. Instructions: / History: COMPARISON: July 11, 2021 TECHNIQUE: Axial CT images were obtained through the abdomen and pelvis with intravenous contrast. One or more of the following individualized dose reduction techniques were utilized for this examinat ion: 1. Automated exposure control; 2. Adjustment of the mA and/or kV according to patient size; 3 . Use of iterative reconstruction technique. FINDINGS: Vascular: Scattered calcific atherosclerosis. Small fat-containing inguinal hernia. Small fat-containing umbilical hernia. Hepatobiliary: Within the right lobe the liver there is ill-defined low-density masslike structure ag ain seen within the right lobe measuring approximately 30 x 23 mm. Mild prominence the bile ducts aga in seen. Pancreas: No peripancreatic edema. Spleen: Spleen unremarkable. Renal: Left renal cystic lesion measuring 32 mm. No hydronephrosis. Bladder: Urinary bladder has minimal urine within it at time of exam with repeat demonstration of renetta e mild prominence of the wall. Gastrointestinal: Colonic diverticulosis. No periappendiceal inflammatory changes. No dilated loops o f bowel to suggest obstruction. Old right rib fractures. Degenerative changes the spine. There is some sclerosis at the pubic symphys is which could be from degenerative changes or chronic symphysitis. IMPRESSION: * No evidence of bowel obstruction or appendicitis. * Repeat demonstration of low-density lesion within the right lobe the liver with irregular shape. I f the patient has not had a liver MRI then would consider obtaining 1 given that this has an indeterm inate appearance and neoplastic causes are within the differential. * Repeat demonstration of dilated bile ducts with common bile duct measuring up to about 10 mm. Electronically signed by: Lm Gilbert MD (08/07/2021 8:40 AM) [id number]
[2021-08-07 08:47] LABS: CALCIUM 9.2 mg/dL (8.5-10.1); CREATININE 0.5 mg/dL (0.6-1.0); GFR 128.1; POTASSIUM 4.4 mmol/L (3.5-5.1)
[2021-08-07 08:54] LABS: ALBUMIN 3.7 g/dL (3.4-5.0); ALBUMIN/GLOBULIN RATIO 1.1 (1.0-1.7); TOTAL BILIRUBIN 0.6 mg/dL (0.2-1.0); TOTAL PROTEIN 7.2 g/dL (6.4-8.2)
[2021-08-07] MEDS ORDERED: LIDO:MAALOX 1:1 20 ML SINGLE DOSE. PO ONE (09:00)
[2021-08-07] MEDS ORDERED: IV NORMAL SALINE 500ML 500 ML IV ONE (09:15)
[2021-08-07] MEDS ORDERED: IV NORMAL SALINE 500ML 500 ML ONE (09:15)
--- NOTE | 2021-08-07 09:19 | EKG ---
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
[2021-08-07 10:20] VITALS: BP 132/73
[2021-08-07] MEDS ORDERED: OMEP40CA7 PO (10:32)
[2021-08-07] MEDS ORDERED: SUCR1TAB35 PO (10:32)
== END 2021-08-07 10:40 | disposition home or self-care (01) ==
LOC: ER 07:17
DX: K29.70 Gastritis, unspecified, without bleeding (principal); G89.29 Other chronic pain; I10 Essential (primary) hypertension; Z87.442 Personal history of urinary calculi; Z94.9 Transplanted organ and tissue status, unspecified; Z90.710 Acquired absence of both cervix and uterus; Z90.722 Acquired absence of ovaries, bilateral; Z87.891 Personal history of nicotine dependence; Z88.6 Allergy status to analgesic agent; Z88.1 Allergy status to other antibiotic agents; Z88.8 Allergy status to other drugs, medicaments and biological substances
CPT/HCPCS: 36415; 74177; 80053; 81001; 83690; 84484; 85025; 87086; 93005; 99285; J7040; Q9967

== ENCOUNTER 2021-09-08 17:36 | Emergency (ER) | payer MEDICARE ==
[~2021-09-08] VITALS: Ht 167.6 cm; Wt 59.1 kg
[~2021-09-08 17:36] MED LIST changes: +OMEP40CA7 PO; +SUCR1TAB35 PO
[2021-09-08 17:50] VITALS: BP 142/81
[2021-09-08] MEDS ORDERED: FAMOTIDINE 20 MG/2 ML VIAL IVP ONE (18:00)
[2021-09-08] MEDS ORDERED: IV NORMAL SALINE 1,000ML 1,000 ML IV ONE (18:00)
[2021-09-08] MEDS ORDERED: LIDO:MAALOX 1:1 20 ML SINGLE DOSE. PO ONE (18:00)
[2021-09-08] MEDS ORDERED: FAMO-63 PO (18:02)
--- NOTE | 2021-09-08 18:03 | PHYS DOC ---
Past History Past Medical History: Hypertension, Kidney Stones, Other Additional Past Medical Histor: back pain, chronic diarrhea, colon polyps Past Surgical History: Cholecystectomy, Hysterectomy, Oophorectomy, Tonsillectomy, Other Additional Past Surgical Histo: bilat carpal tunneling; kidney stones; Alcohol Use: None Drug Use: None General Adult EDM: Chief Complaint: ABDOMINAL PAIN HPI: HPI: Patient is a [age] year old [sex] who presents with [] Review of Systems: Review of Systems: Constitutional: Denies fever or chills Eyes: Denies change in visual acuity HENT: Denies nasal congestion or sore throat Respiratory: Denies cough or shortness of breath Cardiovascular: Denies chest pain or edema GI: Denies abdominal pain, nausea, vomiting, bloody stools or diarrhea : Denies dysuria Musculoskeletal: Denies back pain or joint pain Integument: Denies rash Neurologic: Denies headache, focal weakness or sensory changes Endocrine: Denies polyuria or polydipsia Lymphatic: Denies swollen glands Psychiatric: Denies depression or anxiety Current Medications: Current Meds: Current Medications Medications (Trade) Dose Ordered Sig/Danna Start Time Stop Time Status Last Admin Dose Admin Famotidine (Pepcid Vial) 20 mg 1X ONCE 09/08/21 18:00 09/08/21 18:01 UNV Multi-Ingredient Mouthwash/Gargle (Gi Cocktail) 20 ml 1X ONCE 09/08/21 18:00 09/08/21 18:01 UNV Sodium Chloride 1,000 ml @ 1,000 mls/hr 1X ONCE 09/08/21 18:00 09/08/21 18:59 UNV Allergies: Allergies: Allergies Coded Allergies Type Severity Reaction Last Updated Verified NSAIDS (Non-Steroidal Anti-Inflamma Allergy Unknown 08/07/21 Yes celecoxib Allergy Unknown 08/07/21 Yes cephalexin Allergy Unknown 08/07/21 Yes levofloxacin Allergy Unknown 08/07/21 Yes methamphetamine Allergy Unknown 08/07/21 Yes sulfamethoxazole Allergy Unknown 08/07/21 Yes trimethoprim Allergy Unknown 05/19/21 Yes Physical Exam: PE: Constitutional: Well developed, well nourished, no acute distress, non-toxic appearance. [] HENT: Normocephalic, atraumatic, bilateral external ears normal, oropharynx moist, no oral exudates, nose normal. [] Eyes: PERRLA, EOMI, conjunctiva normal, no discharge. [] Neck: Normal range of motion, no tenderness, supple, no stridor. [] Cardiovascular:Heart rate regular rhythm, no murmur [] Lungs & Thorax: Bilateral breath sounds clear to auscultation [] Abdomen: Bowel sounds normal, soft, no tenderness, no masses, no pulsatile masses. [] Skin: Warm, dry, no erythema, no rash. [] Back: No tenderness, no CVA tenderness. [] Extremities: No tenderness, no cyanosis, no clubbing, ROM intact, no edema. [] Neurologic: Alert and oriented X 3, normal motor function, normal sensory function, no focal deficits noted. [] Psychologic: Affect normal, judgement normal, mood normal. [] EKG: EKG: [] Radiology/Procedures: Radiology/Procedures: [] Heart Score: Risk Factors: Risk Factors: DM, Current or recent (<one month) smoker, HTN, HLP, family history of CAD, obesity. Risk Scores: Score 0 - 3: 2.5% MACE over next 6 weeks - Discharge Home Score 4 - 6: 20.3% MACE over next 6 weeks - Admit for Clinical Observation Score 7 - 10: 72.7% MACE over next 6 weeks - Early Invasive Strategies Course & Med Decision Making: Course & Med Decision Making Pertinent Labs and Imaging studies reviewed. (See chart for details) [] Dragon Disclaimer: Dragon Disclaimer: This electronic medical record was generated, in whole or in part, using a voice recognition dictation system. Departure Departure: Impression: Primary Impression: Chronic abdominal pain Additional Impression: Liver mass Disposition: HOME / SELF CARE / HOMELESS Condition: STABLE Referrals: JAVIER MAX MD (PCP) ORLIN CH MD Patient Instructions: Chronic Pain, Gastritis, Adult, [id number], Incidental Abnormal Radiological Finding Additional Instructions: Please follow closely with your doctor and/or GI specialist for further evaluation of your liver cyts. Scripts Famotidine (PEPCID) 20 Mg Tablet 1 TAB PO BID PRN for HEARTBURN / GAS, #40 TAB Prov: EDWARD MEHTA DO 09/08/21 EDWARD MEHTA DO Sep 08, 2021 18:03
== END 2021-09-08 18:46 | disposition home or self-care (01) ==
LOC: ER 17:36
DX: R16.0 Hepatomegaly, not elsewhere classified (principal); G89.29 Other chronic pain; R10.9 Unspecified abdominal pain; I10 Essential (primary) hypertension; Z87.442 Personal history of urinary calculi; Z90.49 Acquired absence of other specified parts of digestive tract; Z90.710 Acquired absence of both cervix and uterus; Z90.722 Acquired absence of ovaries, bilateral; Z88.6 Allergy status to analgesic agent; Z88.1 Allergy status to other antibiotic agents; Z88.2 Allergy status to sulfonamides; Z88.8 Allergy status to other drugs, medicaments and biological substances
CPT/HCPCS: 99283

== ENCOUNTER 2021-10-08 17:10 | Emergency (ER) | payer MEDICARE ==
[~2021-10-08] VITALS: Ht 167.6 cm; Wt 85.7 kg
[~2021-10-08 17:10] MED LIST changes: +FAMO-63 PO
[2021-10-08 17:56] LABS: BACTERIA,URINE FEW /HPF (0-FEW); BILIRUBIN,URINE NEG (NEG); CLARITY,URINE HAZY; COLOR,URINE YELLOW; GLUCOSE,URINE NEG (NEG); NITRITE,URINE NEG (NEG); RBC,URINE OCC /HPF (0-2); SQUAMOUS EPITHELIAL CELL,UR MANY /LPF
[2021-10-08 18:09] VITALS: BP 119/86
[2021-10-08] MEDS ORDERED: DICY20TA PO (18:30)
--- NOTE | 2021-10-08 18:31 | PHYS DOC ---
Past History Past Medical History: Hypertension, Kidney Stones, Other Additional Past Medical Histor: back pain, colon polyps (BELINDA MENDOZA MARKETING COMMUNICATIONS COORDINATOR) Past Surgical History: Cholecystectomy, Hysterectomy, Tonsillectomy Additional Past Surgical Histo: oopherectomy, bilat carpal tunnel, kidney stones (BELINDA MENDOZA MARKETING COMMUNICATIONS COORDINATOR) Alcohol Use: Rarely Drug Use: None (BELINDA MENDOZA MARKETING COMMUNICATIONS COORDINATOR) Adult General Chief Complaint Chief Complaint: ABDOMINAL PAIN HPI HPI Patient is a 55-year-old female patient presenting today complaining of 5 out of 10 sharp intermittent mid to lower abdominal pain, symptoms have been going on for 5 years intermittently. Patient denies any exacerbating or relieving factors. Initially her chief complaint was she lost her credit card then when we asked her what her medical complaint was she stated she has abdominal pain for 5 years. She also states she wants a ride to the long-term, she is currently homeless. She states she had a negative x-ray done at the doctor's office a week ago for the same complaint and has had a CT done of her abdomen and pelvis which was negative in this hospital in July, patient denies any fever, urgency frequency or dysuria. Denies any fever. Denies any concerns for STDs, denies any unusual vaginal discharge. (BELINDA MENDOZA MARKETING COMMUNICATIONS COORDINATOR) Review of Systems Review of Systems Constitutional: Denies fever or chills [] Eyes: Denies change in visual acuity, redness, or eye pain [] HENT: Denies nasal congestion or sore throat [] Respiratory: Denies cough or shortness of breath [] Cardiovascular: No additional information not addressed in HPI [] GI: Reports abdominal pain, denies nausea, vomiting, bloody stools or diarrhea [] : Denies dysuria or hematuria [] Musculoskeletal: Denies back pain or joint pain [] Integument: Denies rash or skin lesions [] Neurologic: Denies headache, focal weakness or sensory changes [] All other systems were reviewed and found to be within normal limits, except as documented in this note. (BELINDA MENDOZA MARKETING COMMUNICATIONS COORDINATOR) Allergies Allergies Allergies Coded Allergies Type Severity Reaction Last Updated Verified NSAIDS (Non-Steroidal Anti-Inflamma Allergy Unknown 08/07/21 Yes celecoxib Allergy Unknown 08/07/21 Yes cephalexin Allergy Unknown 08/07/21 Yes levofloxacin Allergy Unknown 08/07/21 Yes methamphetamine Allergy Unknown 08/07/21 Yes sulfamethoxazole Allergy Unknown 08/07/21 Yes trimethoprim Allergy Unknown 05/19/21 Yes (BELINDA MENDOZA MARKETING COMMUNICATIONS COORDINATOR) Physical Exam Physical Exam Constitutional: Well developed, well nourished, no acute distress, non-toxic appearance. [] HENT: Normocephalic, atraumatic, bilateral external ears normal, oropharynx moist, no oral exudates, nose normal. [] Eyes: PERRLA, EOMI, conjunctiva normal, no discharge. [] Neck: Normal range of motion, no tenderness, supple, no stridor. [] Cardiovascular:Heart rate regular rhythm, no murmur [] Lungs & Thorax: Bilateral breath sounds clear to auscultation [] Abdomen: Bowel sounds normal, soft, no tenderness, no masses, no pulsatile masses. [] Skin: Warm, dry, no erythema, no rash. [] Back: No tenderness, no CVA tenderness. [] Extremities: No tenderness, no cyanosis, no clubbing, ROM intact, no edema. [] Neurologic: Alert and oriented X 3, normal motor function, normal sensory function, no focal deficits noted. [] Psychologic: Flat affect, appears homeless (BELINDA MENDOZA MARKETING COMMUNICATIONS COORDINATOR) Current Patient Data Vital Signs Vital Signs Date Time Temp Pulse Resp B/P (MAP) Pulse Ox O2 Delivery O2 Flow Rate FiO2 10/08/21 18:09 98.4 98 16 119/86 (97) 98 Room Air Lab Results Laboratory Tests Test 10/08/21 17:29 Urine Collection Type Unknown Urine Color Yellow Urine Clarity Hazy Urine pH 5.5 Urine Specific [place] >=1.030 Urine Protein Neg (NEG-TRACE) Urine Glucose (UA) Neg mg/dL (NEG) Urine Ketones (Stick) Neg mg/dL (NEG) Urine Blood Neg (NEG) Urine Nitrite Neg (NEG) Urine Bilirubin Neg (NEG) Urine Urobilinogen Dipstick 1.0 mg/dL (0.2 mg/dL) Urine Leukocyte Esterase Neg (NEG) Urine RBC Occ /HPF (0-2) Urine WBC 1-4 /HPF (0-4) Urine Squamous Epithelial Cells Many /LPF Urine Bacteria Few /HPF (0-FEW) Urine Mucus Mod /LPF (BELINDA MENDOZA MARKETING COMMUNICATIONS COORDINATOR) EKG EKG [] (BELINDA MENDOZA APRN) Radiology/Procedures Radiology/Procedures [] (BELINDA MENDOZA APRN) Heart Score C/O Chest Pain: N/A Risk Factors: Risk Factors: DM, Current or recent (<one month) smoker, HTN, HLP, family history of CAD, obesity. Risk Scores: Risk Factors: DM, Current or recent (<one month) smoker, HTN, HLP, family history of CAD, obesity. (BELINDA MENDOZA APRN) Course & Med Decision Making Course & Med Decision Making Pertinent Labs and Imaging studies reviewed. (See chart for details) This is a 55-year-old female patient presenting to the ED today with chronic abdominal pain for 5 years. Patient had a CT of her abdomen and pelvis in July which was negative, she reports having an x-ray done of her stomach through the doctor's office last week which is also negative. UA is negative, at this point there is no acute cause for her pain. She states she needs a ride to the homeless long-term. Leanna ruffin [facility] was present in the Ed, she evaluated patient and she was discharged (BELINDA MENDOZA APRN) Course & Med Decision Making I was the Attending physician on the above date of service of this patient. This patient was evaluated, examined, treated, and dispositioned from the emergency department by the mid-level practitioner. Although I was working at the time , no assistance was requested. Electronically signed, Jac Seals DO (JAC SEALS DO) Dm Disclaimer Dm Disclaimer This electronic medical record was generated, in whole or in part, using a voice recognition dictation system. (BELINDA MENDOZA APRN) Departure Departure: Impression: Primary Impression: Chronic abdominal pain Additional Impression: Homeless Disposition: HOME / SELF CARE / HOMELESS Condition: STABLE Referrals: JAVIER MAX MD (PCP) follow up in one week Patient Instructions: Abdominal Pain (Nonspecific) Additional Instructions: You were see for chronic abdominal pain, please follow-up with the provided split leather mosser in 1 to 2 weeks. Take the prescribed medications as ordered. Scripts Dicyclomine Hcl (DICYCLOMINE HCL) 20 Mg Tablet 1 TAB PO TID, #30 TAB 1 Refill Prov: BELINDA MENDOZA APRN 10/08/21 Problem Qualifiers BELINDA MENDOZA APRN Oct 08, 2021 18:31 JAC SEALS DO Oct 10, 2021 06:17
== END 2021-10-08 18:44 | disposition home or self-care (01) ==
LOC: ER 17:10
DX: R10.30 Lower abdominal pain, unspecified (principal); I10 Essential (primary) hypertension; Z90.710 Acquired absence of both cervix and uterus; Z90.49 Acquired absence of other specified parts of digestive tract; Z87.442 Personal history of urinary calculi; Z88.1 Allergy status to other antibiotic agents; Z59.00 Homelessness unspecified; Z88.2 Allergy status to sulfonamides
CPT/HCPCS: 81001; 99283-25